=== PATIENT | female | born 1950 | race Hispanic/Latino ===

== ENCOUNTER 2018-05-22 22:15 | Emergency (ER) | payer MEDICARE ==
[2018-05-22 22:30] VITALS: BP 137/60
--- NOTE | 2018-05-23 01:37 | Emergency Department Report ---
ED Extremity Problem HPI - General Chief complaint: Extremity Injury, Upper Stated complaint: INFECTION ON RT HAND Time Seen by Provider: 05/23/18 01:32 Source: patient Mode of arrival: Ambulatory Limitations: No Limitations - History of Present Illness Initial comments: 67-year-old female comes in for complaint of right hand wound infected. Patient patient reports that she has had recent carpal tunnel surgery on 05/06/2018. Patient is here visiting from [place]. Patient reports she's tried taking Tylenol and Advil which tends to monitor her pain well. Patient denies any fever or chills no nausea no vomiting. Does report that her right hand is tender to touch with redness secondary from her picking at the wound. Patient has an allergy to morphine has a past medical history of thyroid cancer breast cancer and depression high cholesterol carpal tunnel. -: days(s) (2) Location: right, upper extremity (hand) History of Same: No Severity scale (0 -10): 4 Quality: aching Consistency: intermittent Improves with: medication Worsens with: palpation Associated Symptoms: denies other symptoms - Related Data Previous Rx's Medication Instructions Recorded Last Taken Type Sulfamethoxazole/Trimethoprim 1 each PO Q12H #20 tablet 05/23/18 Unknown Rx [Bactrim Ds Tablet] Allergies Allergy/AdvReac Type Severity Reaction Status Date / Time morphine Allergy Hives Verified 05/22/18 22:29 ED Review of Systems ROS: Stated complaint: INFECTION ON RT HAND Other details as noted in HPI Comment: All other systems reviewed and negative Skin: other (right hand skin redness) ED Past Medical Hx - Past Medical History Previous Medical History?: Yes Hx Diabetes: Yes Hx of Cancer: Yes (thyroid, breast) Hx Psychiatric Treatment: Yes (depression) Hx Asthma: Yes Additional medical history: high chlolesterol, - Surgical History Past Surgical History?: Yes Additional Surgical History: carpal tunnel, thyroid, Hysterectomy oopherectomy, B/L Mastectomy - Social History Smoking Status: Never Smoker Substance Use Type: Alcohol - Medications Home Medications: Home Medications Medication Instructions Recorded Confirmed Last Taken Type Sulfamethoxazole/Trimethoprim 1 each PO Q12H #20 tablet 05/23/18 Unknown Rx [Bactrim Ds Tablet] ED Physical Exam - General Limitations: No Limitations General appearance: alert - Head Head exam: Present: atraumatic, normocephalic - ENT ENT exam: Present: mucous membranes moist - Neck Neck exam: Present: normal inspection - Neurological Exam Neurological exam: Present: alert, oriented X3 - Psychiatric Psychiatric exam: Present: normal affect, normal mood - Expanded Skin Exam Expanded Distribution of rash: RUE ( hand) Description of rash: Present: tenderness, erythematous ED Course Vital Signs 05/22/18 22:26 Temperature 98.6 F Pulse Rate 86 Respiratory 18 Rate Blood Pressure 137/60 O2 Sat by Pulse 97 Oximetry ED Medical Decision Making - Medical Decision Making Patient has been evaluated by this provider in fast track. Patient will be treated for local last cellulitis of the right palm of hand. Instructed patient to keep her appointment for her suture removal that she reports is scheduled for May 30. Advised patient to stop picking at the wound complete antibiotics as prescribed she can take [id number] Tylenol or Motrin/ibuprofen as needed for pain management. Patient verbalized understanding. Critical care attestation.: If time is entered above; I have spent that time in minutes in the direct care of this critically ill patient, excluding procedure time. ED Disposition Clinical Impression: Cellulitis of hand excluding fingers Disposition: DC-01 TO HOME OR SELFCARE Is pt being admited?: No Does the pt Need Aspirin: No Condition: Stable Instructions: Cellulitis (ED) Additional Instructions: Please complete antibiotics as prescribed. You can take [id number] Tylenol or ibuprofen for pain management. Please keep your appointment that is scheduled for your suture removal and wound follow-up. Prescriptions: Sulfamethoxazole/Trimethoprim [Bactrim Ds Tablet] 1 each PO Q12H #20 tablet Referrals: PRIMARY CARE, [Primary Care Provider] - 3-5 Days
== END 2018-05-23 01:56 | disposition home or self-care (01) ==
LOC: ED 22:15
DX: L03.113 Cellulitis of right upper limb (principal); E11.9 Type 2 diabetes mellitus without complications; J45.909 Unspecified asthma, uncomplicated; E78.00 Pure hypercholesterolemia, unspecified; Z90.710 Acquired absence of both cervix and uterus; Z88.6 Allergy status to analgesic agent
CPT/HCPCS: 99282